=== PATIENT | male | born 1990 | race Hispanic/Latino ===

== ENCOUNTER 2020-11-27 21:57 | Emergency (ER) | payer OTHER ==
[~2020-11-27] VITALS: Ht 180.3 cm; Wt 62.6 kg
[2020-11-28 00:56] LABS: RSV AMPLIFICATION NEGATIVE (NEGATIVE)
[2020-11-28] MEDS ORDERED: IBUPROFEN 600MG TAB PO ONE (03:25)
[2020-11-28 04:00] VITALS: BP 109/63
--- NOTE | 2020-11-28 04:01 | REPVR ---
PROCEDURE INFORMATION: Exam: XR Chest Exam date and time: 11/28/20 (3:26am) Age: 30 years old Clinical indication: Cough TECHNIQUE: Imaging protocol: XR of the chest Views: 2 views COMPARISON: No relevant prior studies available FINDINGS: Lungs: Unremarkable. No consolidation. Pleural spaces: Unremarkable. No pleural effusions. No pneumothorax. Heart/Mediastinum: Unremarkable. No cardiomegaly. Bones/joints: Unremarkable. IMPRESSION: No acute findings. Electronically signed by: Kim Alcazar On 11/28/2020 04:00:30 AM
== END 2020-11-28 04:24 | disposition home or self-care (01) ==
LOC: M ED 21:57
DX: J06.9 Acute upper respiratory infection, unspecified (principal)

== ENCOUNTER 2023-06-02 13:28 | Emergency (ER) | payer OTHER ==
[~2023-06-02] VITALS: Ht 180.3 cm; Wt 66.8 kg
[2023-06-02] MEDS ORDERED: IBUPROFEN 600MG TAB PO ONE (17:10)
[2023-06-02] MEDS ORDERED: IBUP-1022 PO (17:28)
[2023-06-02 17:33] VITALS: BP 125/73; TEMP 98.3; O2SAT 98
== END 2023-06-02 17:45 | disposition home or self-care (01) ==
LOC: M ED 13:28
DX: S62.315A Displaced fracture of base of fourth metacarpal bone, left hand, initial encounter for closed fracture (principal); Y92.39 Other specified sports and athletic area as the place of occurrence of the external cause; Y93.B3 Activity, free weights; Y99.9 Unspecified external cause status; Z79.1 Long term (current) use of non-steroidal anti-inflammatories (NSAID)